=== PATIENT | female | born 1990 | race American Indian/Alaskan Native ===

== ENCOUNTER 2016-11-03 22:49 | Emergency (ER) | payer MEDICAID ==
[2016-11-04 00:23] LABS: Basophils % (Auto) 0.1 % (0.0-1.8); Eosinophils % (Auto) 3.8 % (0.0-4.3); Hematocrit 33.7 % (30.3-42.9); Hemoglobin 10.7 gm/dl (10.1-14.3); Mean Corpuscular HGB Conc 32 % (30-34); Mean Corpuscular Hemoglobin 28 pg (28-32); Mean Corpuscular Volume 88 fl (79-97); Platelet Count 311 K/mm3 (140-440); Red Blood Count 3.84 M/mm3 (3.65-5.03); Red Cell Distribution Width 14.1 % (13.2-15.2)
[2016-11-04 00:50] LABS: Alanine Aminotransferase 28 units/L (7-56); Albumin 4.3 g/dL (3.9-5); Albumin/Globulin Ratio 1.3 %; Alkaline Phosphatase 110 units/L (35-129); Anion Gap 20 mmol/L; BUN/Creatinine Ratio 17.14; Bilirubin,Total < 0.20 mg/dL (0.1-1.2); Blood Urea Nitrogen 12 mg/dL (7-17); Calcium 9.2 mg/dL (8.4-10.2); Carbon Dioxide 25 mmol/L (22-30); Chloride 103.4 mmol/L (98-107); Glucose 113 mg/dL (65-100); Lipase 54 units/L (13-60); Potassium 3.9 mmol/L (3.6-5.0); Sodium 144 mmol/L (137-145); Total Protein 7.6 g/dL (6.3-8.2)
[2016-11-04 03:29] LABS: Bilirubin,Urine NEG (Negative); Blood,Urine NEG (Negative); Ketones,Urine NEG (Negative); Leukocyte Esterase,Urine TR (Negative); Mucus,Urine FEW /HPF; Nitrite,Urine NEG (Negative); Protein,Urine <15 mg/dL mg/dL (Negative); Urobilinogen,Urine < 2.0 mg/dL (<2.0)
[2016-11-04] MEDS ORDERED: CEPHULAC PO ONE (06:18)
--- NOTE | 2016-11-04 06:23 | Emergency Department Report ---
HPI - General Chief Complaint: Abdominal Pain Time Seen by Provider: 11/04/16 06:09 - HPI HPI: Room 8 \The patient is 26-year-old female presenting with a chief complaint palpitations. The patient is status post a 10/02/2016. The patient states she has been taking pain medication was stopped approximately one week ago. The patient states she has not had a bowel movement in 6 days. Patient states she has nausea but denies vomiting. 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 (VSD repair) - Family History Family history: no significant - Social History Smoking Status: Current Every Day Smoker Substance Use Type: None - Medications Home Medications: Home Medications Medication Instructions Recorded Confirmed Last Taken Type Loratadine [Claritin] 10 mg PO DAILY #30 tablet 09/14/15 Unknown Rx Prednisone [predniSONE 10 mg 10 mg PO .TAPER #1 tab.ds.pk 09/14/15 Unknown Rx (6-Day Pack, 21 Tabs)] Promethazine /Codeine 5 ml PO Q6H PRN #150 ml 09/14/15 Unknown Rx [Phenergan/Codeine 6.25-10 mg/5 ml] Sulfamethoxazole/Trimethoprim 1 each PO BID #20 tablet 09/14/15 Unknown Rx [Bactrim DS TAB] Docusate Sodium [Colace] 100 mg PO BID PRN #30 capsule 11/04/16 Unknown Rx Lactulose [Cephulac] 20 gm PO QDAY PRN #90 ml 11/04/16 Unknown Rx ED Review of Systems ROS: Stated complaint: NAUSEA/CONSTIPATION Other details as noted in HPI Comment: All other systems reviewed and negative Constitutional: denies: chills Eyes: denies: eye pain, eye discharge, vision change ENT: denies: ear pain, throat pain Respiratory: denies: cough, shortness of breath, wheezing Cardiovascular: denies: chest pain, palpitations Endocrine: no symptoms reported Gastrointestinal: abdominal pain, nausea, constipation. denies: vomiting, diarrhea Genitourinary: denies: urgency, dysuria, discharge Musculoskeletal: denies: back pain, joint swelling, arthralgia Skin: denies: rash, lesions Neurological: denies: headache, weakness, paresthesias Psychiatric: denies: anxiety, depression Hematological/Lymphatic: denies: easy bleeding, easy bruising Physical Exam - Physical Exam Vital Signs: Vital Signs 11/03/16 11/04/16 23:09 05:14 Temperature 98.7 F 98 F Pulse Rate 67 68 Respiratory 18 16 Rate Blood Pressure 132/79 Blood Pressure 115/74 [Left] O2 Sat by Pulse 100 100 Oximetry Physical Exam: GENERAL: The patient is well-developed well-nourished female lying on stretcher not appearing to be in acute distress. [] HEENT: Normocephalic. Atraumatic. Extraocular motions are intact. Patient has moist mucous membranes. NECK: Supple. Trachea midline CHEST/LUNGS: Clear to auscultation. There is no respiratory distress noted. HEART/CARDIOVASCULAR: Regular. There is no tachycardia. There is no gallop rub or murmur. ABDOMEN: Abdomen is soft. Patient has normal bowel sounds. There is no abdominal distention. surgical site well-healed and clean SKIN: There is no rash. There is no edema. There is no diaphoresis. NEURO: The patient is awake, alert, and oriented. The patient is cooperative. The patient has normal speech MUSCULOSKELETAL: There is no evidence of acute injury. ED Course Vital Signs 11/03/16 11/04/16 23:09 05:14 Temperature 98.7 F 98 F Pulse Rate 67 68 Respiratory 18 16 Rate Blood Pressure 132/79 Blood Pressure 115/74 [Left] O2 Sat by Pulse 100 100 Oximetry - Consultations Consultation #1: 11/04/16 09:08 Informed that the patient has had a bowel movement ED Medical Decision Making - Lab Data Result diagrams: 11/04/16 00:03 11/04/16 00:03 Laboratory Tests 11/04/16 11/04/16 11/04/16 00:03 00:03 02:46 WBC 9.0 RBC 3.84 Hgb 10.7 Hct 33.7 MCV 88 MCH 28 MCHC 32 RDW 14.1 Plt Count 311 Lymph % (Auto) 35.7 H Mower % (Auto) 8.2 H Eos % (Auto) 3.8 Baso % (Auto) 0.1 Lymph # 3.2 Mower # 0.7 Eos # 0.3 Baso # 0.0 Seg Neutrophils % 52.2 Seg Neutrophils # 4.7 Sodium 144 Potassium 3.9 Chloride 103.4 Carbon Dioxide 25 Anion Gap 20 BUN 12 Creatinine 0.7 Estimated GFR > 60 BUN/Creatinine Ratio 17.14 Glucose 113 H Calcium 9.2 Total Bilirubin < 0.20 AST 27 ALT 28 Alkaline Phosphatase 110 Total Protein 7.6 Albumin 4.3 Albumin/Globulin Ratio 1.3 Lipase 54 Urine Color Yellow Urine Turbidity Clear Urine pH 6.0 Ur Specific [place] 1.021 Urine Protein <15 mg/dl Urine Glucose (UA) Neg Urine Ketones Neg Urine Blood Neg Urine Nitrite Neg Urine Bilirubin Neg Urine Urobilinogen < 2.0 Ur Leukocyte Esterase Tr Urine WBC (Auto) 3.0 Urine RBC (Auto) 1.0 U Epithel Cells (Auto) 1.0 Urine Mucus Few Urine HCG, Qual 11/04/16 02:46 WBC RBC Hgb Hct MCV MCH MCHC RDW Plt Count Lymph % (Auto) Mower % (Auto) Eos % (Auto) Baso % (Auto) Lymph # Mower # Eos # Baso # Seg Neutrophils % Seg Neutrophils # Sodium Potassium Chloride Carbon Dioxide Anion Gap BUN Creatinine Estimated GFR BUN/Creatinine Ratio Glucose Calcium Total Bilirubin AST ALT Alkaline Phosphatase Total Protein Albumin Albumin/Globulin Ratio Lipase Urine Color Urine Turbidity Urine pH Ur Specific [place] Urine Protein Urine Glucose (UA) Urine Ketones Urine Blood Urine Nitrite Urine Bilirubin Urine Urobilinogen Ur Leukocyte Esterase Urine WBC (Auto) Urine RBC (Auto) U Epithel Cells (Auto) Urine Mucus Urine HCG, Qual Negative - Radiology Data Radiology results: image reviewed (abdominal x-ray) interpreted by me: Abdominal [id number]. No free air, no air-fluid levels - Differential Diagnosis constipation Critical care attestation.: If time is entered above; I have spent that time in minutes in the direct care of this critically ill patient, excluding procedure time. ED Disposition Clinical Impression: Constipation Disposition: DISCHARGED TO HOME OR SELFCARE Is pt being admited?: No Does the pt Need Aspirin: No Condition: Stable Instructions: Abdominal Pain (ED) Additional Instructions: Return to the emergency department immediately should you develop worsening symptoms, fever, inability to tolerate food or liquid or any other concerns. Prescriptions: Docusate Sodium [Colace] 100 mg PO BID PRN #30 capsule PRN Reason: Constipation Lactulose [Cephulac] 20 gm PO QDAY PRN #90 ml PRN Reason: Constipation Referrals: JOANNA FLAHERTY MD [Primary Care Provider] - 3-5 Days Time of Disposition: 09:08
[2016-11-04 08:03] VITALS: BP 141/56
--- NOTE | 2016-11-04 09:23 | XRay Report ---
ABDOMEN, 2 views: History: Abdominal pain, constipation. There is no evidence of free air beneath the diaphragms. The gas pattern within the abdomen is unremarkable. There is no evidence of bowel dilatation, significant air-fluid levels, or pathologic calcifications. There is large stool throughout the length of the colon and rectum. The lung bases are clear. IMPRESSION: Moderate fecal retention.
== END 2016-11-04 09:45 | disposition home or self-care (01) ==
LOC: ED 22:49
DX: K59.00 Constipation, unspecified (principal); G40.909 Epilepsy, unspecified, not intractable, without status epilepticus; F17.200 Nicotine dependence, unspecified, uncomplicated
CPT/HCPCS: 36415; 74020; 80053; 81001; 81025; 83690; 85025; 99284

== ENCOUNTER 2017-03-07 17:56 | Observation (INO) | payer MEDICAID ==
[2017-03-07 19:08] LABS: Basophils % (Auto) 0.6 % (0.0-1.8); Eosinophils % (Auto) 0.5 % (0.0-4.3); Hematocrit 38.4 % (30.3-42.9); Hemoglobin 12.2 gm/dl (10.1-14.3); Mean Corpuscular HGB Conc 32 % (30-34); Mean Corpuscular Hemoglobin 28 pg (28-32); Mean Corpuscular Volume 87 fl (79-97); Platelet Count 390 K/mm3 (140-440); Red Blood Count 4.43 M/mm3 (3.65-5.03); Red Cell Distribution Width 14.7 % (13.2-15.2); White Blood Count 11.5 K/mm3 (4.5-11.0)
[2017-03-07 19:25] LABS: Alanine Aminotransferase 15 units/L (7-56); Albumin 4.4 g/dL (3.9-5); Albumin/Globulin Ratio 1.2 %; Alkaline Phosphatase 70 units/L (35-129); BUN/Creatinine Ratio 13.33; Blood Urea Nitrogen 8 mg/dL (7-17); Calcium 9.5 mg/dL (8.4-10.2); Carbon Dioxide 27 mmol/L (22-30); Glucose 83 mg/dL (65-100); Lipase 18 units/L (13-60)
[2017-03-07 19:26] LABS: Anion Gap 19 mmol/L; Chloride 100.5 mmol/L (98-107); Sodium 141 mmol/L (137-145)
[2017-03-07 21:29] LABS: Bacteria,Urine 1+ /HPF (Negative); Bilirubin,Urine NEG (Negative); Blood,Urine NEG (Negative); Ketones,Urine NEG (Negative); Leukocyte Esterase,Urine MOD (Negative); Mucus,Urine FEW /HPF; Nitrite,Urine NEG (Negative); Protein,Urine <15 mg/dL mg/dL (Negative); Urobilinogen,Urine < 2.0 mg/dL (<2.0)
--- NOTE | 2017-03-08 03:47 | Emergency Department Report ---
ED Abdominal Pain HPI - General Chief Complaint: Abdominal Pain Stated Complaint: ABDOMINAL PAIN, NAUSEA AND VOMITING Time Seen by Provider: 03/08/17 03:45 Source: patient Mode of arrival: Ambulatory Limitations: No Limitations - History of Present Illness Initial Comments: 27 year old female with a past history of epilepsy and GERD presents to the hospital complaints of possible opiate withdrawal. Patient was admitted to [facility] yesterday for opiate dependence. She presents here with complaints of abdominal cramping and pain rated 7/10, nausea, and vomiting since the morning. Patient thinks he is withdrawing. She is basically leave and states this feels a little bit better. Prior to my evaluation patient drank Oxy citris cleaneradn chlorox can cleaner in the ED. Patient states he is frustrated with the long wait and states that she was not serious enough to be seen right away she decided to make herself more emergent. She thought that drinking this solution will cause her to foam at the mouth and seize increasing her acuity and causing her to be seen more immediately in the ED. Currently patient denies any discomfort. She denies any sore throat or abdominal pain. Patient denies suicidal ideation - Related Data Previous Rx's Medication Instructions Recorded Last Taken Type Loratadine [Claritin] 10 mg PO DAILY #30 tablet 09/14/15 Unknown Rx Prednisone [predniSONE 10 mg 10 mg PO .TAPER #1 tab.ds.pk 09/14/15 Unknown Rx (6-Day Pack, 21 Tabs)] Promethazine /Codeine 5 ml PO Q6H PRN #150 ml 09/14/15 Unknown Rx [Phenergan/Codeine 6.25-10 mg/5 ml] Sulfamethoxazole/Trimethoprim 1 each PO BID #20 tablet 09/14/15 Unknown Rx [Bactrim DS TAB] Docusate Sodium [Colace] 100 mg PO BID PRN #30 capsule 11/04/16 Unknown Rx Lactulose [Cephulac] 20 gm PO QDAY PRN #90 ml 11/04/16 Unknown Rx Allergies Allergy/AdvReac Type Severity Reaction Status Date / Time amoxicillin trihydrate Allergy Hives Verified 09/14/15 01:15 [From Augmentin] potassium clavulanate Allergy Hives Verified 09/14/15 01:15 [From Augmentin] Sulfa (Sulfonamide Allergy Unknown Verified 03/07/17 18:44 Antibiotics) ED Review of Systems ROS: Stated complaint: ABDOMINAL PAIN, NAUSEA AND VOMITING Other details as noted in HPI Comment: All other systems reviewed and negative Other: Constitutional: No fevers chills Eyes: No eye pain visual changes ENT: No ear pain or throat pain Neck: Denies pain Respiratory: Denies cough wheezing shortness of breath Cardiovascular: Denies chest pain, palpitations, syncope GI: As per HPI : Denies dysuria Musculoskeletal: Denies back pain, joint swelling Skin: Denies rash, lesions, erythema Neurologic: Denies headache, numbness, weakness Psychiatric: Denies suicidal ideation, hallucinations ED Past Medical Hx - Past Medical History Previous Medical History?: Yes Hx GERD: Yes Hx Seizures: Yes (epilepsy last seizure 2004) Additional medical history: MVP, epilepsy. Anemia. Herpes - Surgical History Past Surgical History?: Yes Additional Surgical History: OPen Heart surgery @ 10 years old (VSD repair) - Social History Smoking Status: Current Every Day Smoker - Medications Home Medications: Home Medications Medication Instructions Recorded Confirmed Last Taken Type Loratadine [Claritin] 10 mg PO DAILY #30 tablet 09/14/15 Unknown Rx Prednisone [predniSONE 10 mg 10 mg PO .TAPER #1 tab.ds.pk 09/14/15 Unknown Rx (6-Day Pack, 21 Tabs)] Promethazine /Codeine 5 ml PO Q6H PRN #150 ml 09/14/15 Unknown Rx [Phenergan/Codeine 6.25-10 mg/5 ml] Sulfamethoxazole/Trimethoprim 1 each PO BID #20 tablet 09/14/15 Unknown Rx [Bactrim DS TAB] Docusate Sodium [Colace] 100 mg PO BID PRN #30 capsule 11/04/16 Unknown Rx Lactulose [Cephulac] 20 gm PO QDAY PRN #90 ml 11/04/16 Unknown Rx ED Physical Exam - General Limitations: No Limitations - Other Other exam information: General: No limitations, patient is alert in no acute distress Head exam: Atraumatic, normocephalic Eyes exam: Normal appearance ENT: Moist mucous membrane, normal oropharynx Neck exam: Normal inspection, full range of motion, no meningismus nontender Respiratory exam: Clear to auscultation bilateral, no wheezes, rales, crackles Cardiovascular: Normal rate and rhythm, normal heart sounds Abdomen: Soft, nondistended, and nontender, with normal bowel sounds, no rebound, or guarding Extremity: Full range of motion normal inspection no deformity Back: Normal Inspection, full range of motion, no tenderness Neurologic: Alert, oriented x3, cranial nerves intact, no motor or sensory deficit Psychiatric: normal affect, normal mood Skin: Warm, dry, intact ED Course Vital Signs 03/07/17 03/08/17 18:36 01:00 Temperature 98.4 F Pulse Rate 91 H 88 Respiratory 16 18 Rate Blood Pressure 127/65 Blood Pressure 121/74 [Left] O2 Sat by Pulse 96 100 Oximetry - Reevaluation(s) Reevaluation #1: 03/08/17 04:43 At 1:21 AM Nurse discussed case with Junie with poison control. Oxy-[employer] can cleaner can cause abdominal pain, nausea, vomiting, and diarrhea but not lethal. Chlorox clearance appears to 12 and depending on the amount can cause esophageal burn and stomach damage. Once it mixes with the stomach acid it turns into HCl. Recommended admission, GI consult. Nothing by mouth until cleared by GI. - Consultations Consultation #1: 03/08/17 04:12 Dr. Sethi consulted GI. ED Medical Decision Making - Lab Data Result diagrams: 03/07/17 18:50 03/07/17 18:50 Lab Results 03/07/17 03/07/17 03/07/17 Range/Units 18:50 18:50 21:09 WBC 11.5 H (4.5-11.0) K/mm3 RBC 4.43 (3.65-5.03) M/mm3 Hgb 12.2 (10.1-14.3) gm/dl Hct 38.4 (30.3-42.9) % MCV 87 (79-97) fl MCH 28 (28-32) pg MCHC 32 (30-34) % RDW 14.7 (13.2-15.2) % Plt Count 390 (140-440) K/mm3 Lymph % (Auto) 18.4 (13.4-35.0) % [place] % (Auto) 4.9 (0.0-7.3) % Eos % (Auto) 0.5 (0.0-4.3) % Baso % (Auto) 0.6 (0.0-1.8) % Lymph # 2.1 (1.2-5.4) K/mm3 [place] # 0.6 (0.0-0.8) K/mm3 Eos # 0.1 (0.0-0.4) K/mm3 Baso # 0.1 (0.0-0.1) K/mm3 Seg Neutrophils % 75.6 H (40.0-70.0) % Seg Neutrophils # 8.7 H (1.8-7.7) K/mm3 Sodium 141 (137-145) mmol/L Potassium 5.0 (3.6-5.0) mmol/L Chloride 100.5 (98-107) mmol/L Carbon Dioxide 27 (22-30) mmol/L Anion Gap 19 mmol/L BUN 8 (7-17) mg/dL Creatinine 0.6 L (0.7-1.2) mg/dL Estimated GFR > 60 ml/min BUN/Creatinine Ratio 13.33 % Glucose 83 (65-100) mg/dL Calcium 9.5 (8.4-10.2) mg/dL Total Bilirubin 0.30 (0.1-1.2) mg/dL AST 24 (5-40) units/L ALT 15 (7-56) units/L Alkaline Phosphatase 70 (35-129) units/L Total Protein 8.0 (6.3-8.2) g/dL Albumin 4.4 (3.9-5) g/dL Albumin/Globulin Ratio 1.2 % Lipase 18 (13-60) units/L Urine Color Yellow (Yellow) Urine Turbidity Clear (Clear) Urine pH 5.0 (5.0-7.0) Ur Specific [place] 1.017 (1.003-1.030) Urine Protein <15 mg/dl (Negative) mg/dL Urine Glucose (UA) Neg (Negative) mg/dL Urine Ketones Neg (Negative) mg/dL Urine Blood Neg (Negative) Urine Nitrite Neg (Negative) Urine Bilirubin Neg (Negative) Urine Urobilinogen < 2.0 (<2.0) mg/dL Ur Leukocyte Esterase Mod (Negative) Urine WBC (Auto) 7.0 H (0.0-6.0) /HPF Urine RBC (Auto) 5.0 (0.0-6.0) /HPF U Epithel Cells (Auto) 12.0 (0-13.0) /HPF Urine Bacteria (Auto) 1+ (Negative) /HPF Urine Mucus Few /HPF - Medical Decision Making 1013 signed. Patient requires admission to the hospital to be clear by GI due to caustic ingestion - Differential Diagnosis opiate withdrawal, gastroenteritis, dehydration, esophageal in Critical Care Time: No Critical care attestation.: If time is entered above; I have spent that time in minutes in the direct care of this critically ill patient, excluding procedure time. ED Disposition Clinical Impression: Ingestion of corrosive chemical, Opiate dependence Disposition: OP ADMIT IP TO THIS HOSP Is pt being admited?: Yes Condition: Stable Time of Disposition: 03:51 (Hospitalist)
[2017-03-08] MEDS ORDERED: GEODON IM ONE (03:51)
[2017-03-08] MEDS ORDERED: WATER FOR INJ (PF) 10 ML ONE (04:26)
[2017-03-08] MEDS ORDERED: MILK OF MAGNESIA PO PRN (06:06)
[2017-03-08] MEDS ORDERED: PROVENTIL IH PRN (06:06)
[2017-03-08] MEDS ORDERED: MORPHINE IV PRN (06:06)
[2017-03-08] MEDS ORDERED: ALUM-MAG HYDROX-SIMETH 200-200-20MG/5ML PO PRN (06:06)
[2017-03-08] MEDS ORDERED: DULCOLAX PR PRN (06:06)
[2017-03-08] MEDS ORDERED: ZOFRAN IV PRN (06:06)
--- NOTE | 2017-03-08 06:11 | History and Physical Report ---
History of Present Illness Date of examination: 03/08/17 Chief complaint: Abdominal pain nausea vomiting History of present illness: 27 year old female with a past history of epilepsy and GERD presents to the hospital complaints of possible opiate withdrawal. Patient was admitted to [facility] yesterday for opiate dependence. She presents here with complaints of abdominal cramping and pain rated 7/10, nausea, and vomiting since the morning. Patient thinks he is withdrawing. She is basically leave and states this feels a little bit better. Prior to my evaluation patient drank Oxy citris cleaneradn chlorox stable cleaner in the ED. Patient states he is frustrated with the long wait and states that she was not serious enough to be seen right away she decided to make herself more emergent. She thought that drinking this solution will cause her to foam at the mouth and seize increasing her acuity and causing her to be seen more immediately in the ED. Currently patient denies any discomfort. She denies any sore throat or abdominal pain. Patient denies suicidal ideation Past History Past Medical History: seizures, other (herpes) Past Surgical History: Other (V is deviated.) Social history: smoking Family history: no significant family history Medications and Allergies Allergies Allergy/AdvReac Type Severity Reaction Status Date / Time amoxicillin trihydrate Allergy Hives Verified 09/14/15 01:15 [From Augmentin] potassium clavulanate Allergy Hives Verified 09/14/15 01:15 [From Augmentin] Sulfa (Sulfonamide Allergy Unknown Verified 03/07/17 18:44 Antibiotics) Home Medications Medication Instructions Recorded Confirmed Last Taken Type Loratadine [Claritin] 10 mg PO DAILY #30 tablet 09/14/15 Unknown Rx Prednisone [predniSONE 10 mg 10 mg PO .TAPER #1 tab.ds.pk 09/14/15 Unknown Rx (6-Day Pack, 21 Tabs)] Promethazine /Codeine 5 ml PO Q6H PRN #150 ml 09/14/15 Unknown Rx [Phenergan/Codeine 6.25-10 mg/5 ml] Sulfamethoxazole/Trimethoprim 1 each PO BID #20 tablet 09/14/15 Unknown Rx [Bactrim DS TAB] Docusate Sodium [Colace] 100 mg PO BID PRN #30 capsule 11/04/16 Unknown Rx Lactulose [Cephulac] 20 gm PO QDAY PRN #90 ml 11/04/16 Unknown Rx Active Meds: Active Medications Acetaminophen (Tylenol) 650 mg PO Q4H PRN PRN Reason: Pain MILD(1-3)/Fever >100.5/[place] Review of Systems All systems: negative (all 14 systems reviewed and found to be negative except as mentioned in HPI) Exam - Physical Exam Narrative exam: General: No limitations, patient is alert in no acute distress Head exam: Atraumatic, normocephalic Eyes exam: Normal appearance ENT: Moist mucous membrane, normal oropharynx Neck exam: Normal inspection, full range of motion, no meningismus nontender Respiratory exam: Clear to auscultation bilateral, no wheezes, rales, crackles Cardiovascular: Normal rate and rhythm, normal heart sounds Abdomen: Soft, nondistended, and nontender, with normal bowel sounds, no rebound, or guarding Extremity: Full range of motion normal inspection no deformity Back: Normal Inspection, full range of motion, no tenderness Neurologic: Alert, oriented x3, cranial nerves intact, no motor or sensory deficit Psychiatric: Anxious mood patient is very upset and agitated yelling and screaming for food, Skin: Warm, dry, intact - Constitutional Vitals: Temp Pulse Resp BP Pulse Ox 98.8 F 91 H 18 107/70 100 03/08/17 05:55 03/08/17 05:55 03/08/17 05:55 03/08/17 05:55 03/08/17 05:55 Results - Labs CBC & Chem 7: 03/07/17 18:50 03/07/17 18:50 Labs: Laboratory Last Values WBC 11.5 K/mm3 (4.5-11.0) H 03/07/17 18:50 RBC 4.43 M/mm3 (3.65-5.03) 03/07/17 18:50 Hgb 12.2 gm/dl (10.1-14.3) 03/07/17 18:50 Hct 38.4 % (30.3-42.9) 03/07/17 18:50 MCV 87 fl (79-97) 03/07/17 18:50 MCH 28 pg (28-32) 03/07/17 18:50 MCHC 32 % (30-34) 03/07/17 18:50 RDW 14.7 % (13.2-15.2) 03/07/17 18:50 Plt Count 390 K/mm3 (140-440) 03/07/17 18:50 Lymph % (Auto) 18.4 % (13.4-35.0) 03/07/17 18:50 [place] % (Auto) 4.9 % (0.0-7.3) 03/07/17 18:50 Eos % (Auto) 0.5 % (0.0-4.3) 03/07/17 18:50 Baso % (Auto) 0.6 % (0.0-1.8) 03/07/17 18:50 Lymph # 2.1 K/mm3 (1.2-5.4) 03/07/17 18:50 [place] # 0.6 K/mm3 (0.0-0.8) 03/07/17 18:50 Eos # 0.1 K/mm3 (0.0-0.4) 03/07/17 18:50 Baso # 0.1 K/mm3 (0.0-0.1) 03/07/17 18:50 Seg Neutrophils % 75.6 % (40.0-70.0) H 03/07/17 18:50 Seg Neutrophils # 8.7 K/mm3 (1.8-7.7) H 03/07/17 18:50 Sodium 141 mmol/L (137-145) 03/07/17 18:50 Potassium 5.0 mmol/L (3.6-5.0) 03/07/17 18:50 Chloride 100.5 mmol/L (98-107) 03/07/17 18:50 Carbon Dioxide 27 mmol/L (22-30) 03/07/17 18:50 Anion Gap 19 mmol/L 03/07/17 18:50 BUN 8 mg/dL (7-17) 03/07/17 18:50 Creatinine 0.6 mg/dL (0.7-1.2) L 03/07/17 18:50 Estimated GFR > 60 ml/min 03/07/17 18:50 BUN/Creatinine Ratio 13.33 % 03/07/17 18:50 Glucose 83 mg/dL (65-100) 03/07/17 18:50 Calcium 9.5 mg/dL (8.4-10.2) 03/07/17 18:50 Total Bilirubin 0.30 mg/dL (0.1-1.2) 03/07/17 18:50 AST 24 units/L (5-40) 03/07/17 18:50 ALT 15 units/L (7-56) 03/07/17 18:50 Alkaline Phosphatase 70 units/L (35-129) 03/07/17 18:50 Total Protein 8.0 g/dL (6.3-8.2) 03/07/17 18:50 Albumin 4.4 g/dL (3.9-5) 03/07/17 18:50 Albumin/Globulin Ratio 1.2 % 03/07/17 18:50 Lipase 18 units/L (13-60) 03/07/17 18:50 Urine Color Yellow (Yellow) 03/07/17 21:09 Urine Turbidity Clear (Clear) 03/07/17 21:09 Urine pH 5.0 (5.0-7.0) 03/07/17 21:09 Ur Specific [place] 1.017 (1.003-1.030) 03/07/17 21:09 Urine Protein <15 mg/dl mg/dL (Negative) 03/07/17 21:09 Urine Glucose (UA) Neg mg/dL (Negative) 03/07/17 21:09 Urine Ketones Neg mg/dL (Negative) 03/07/17 21:09 Urine Blood Neg (Negative) 03/07/17 21:09 Urine Nitrite Neg (Negative) 03/07/17 21:09 Urine Bilirubin Neg (Negative) 03/07/17 21:09 Urine Urobilinogen < 2.0 mg/dL (<2.0) 03/07/17 21:09 Ur Leukocyte Esterase Mod (Negative) 03/07/17 21:09 Urine WBC (Auto) 7.0 /HPF (0.0-6.0) H 03/07/17 21:09 Urine RBC (Auto) 5.0 /HPF (0.0-6.0) 03/07/17 21:09 U Epithel Cells (Auto) 12.0 /HPF (0-13.0) 03/07/17 21:09 Urine Bacteria (Auto) 1+ /HPF (Negative) 03/07/17 21:09 Urine Mucus Few /HPF 03/07/17 21:09 Assessment and Plan Assessment and plan: Assessment and plan - * Acute psychosis and suicidal ideation and suicidal behavior * Ingestion of a corrosive substance which is base and potential to be converted into an acid substance * Abdominal pain nausea vomiting nonspecific Plan Admit the patient to medical floor with telemetry she is a 1013, keep nothing by mouth Poison control was called and the patient needs to be monitored GI was consulted in the ER patient recently seen and evaluated in the morning possibly need for EGD When necessary morphine and Ativan Monitor CBC and electrolytes replace electrolytes when necessary DVT GI prophylaxis as ordered Nontender follow the patient closely VTE prophylaxis?: Chemical, Mechanical Plan of care discussed with patient/family: Yes
[2017-03-08] MEDS ORDERED: D5NS 1,000 ML IV SCH (07:00)
--- NOTE | 2017-03-08 07:26 | Admit Criteria Form ---
Admission Criteria Documentation: DRUG INGESTION OR OVERDOSE Clinical Indications for Admission to Inpatient Care ( [place]ona/check or initial the applicable condition/criteria) Admission is indicated for severe toxicity as indicated by 1 or more of the following(1)(2)(3) )(4)(5)(6) I. Hemodynamic instability. II. Dangerous arrhythmia III. Respiratory abnormalities IV. Hypertension requiring inpatient treatment V. Specific finding indicating severe and likely prolonged or drug toxicity [X]. Inpatient admission required rather than observation care (See Drug Ingestion or Overdose: Observation Care guideline as appropriate) because 1 or more of the following(9)(10) [ ] a) Altered mental status that is severe or persistent [ ] b) Clinical finding(e.g., metabolic acidosis, hypoglycemia, bradycardia ) that is severe or persistent(11) [ ] c) Toxic drug level that is persistent or necessitates ongoing treatment (e.g. acetaminophen overdose) [ ] d) Recurrent seizures [X] e) Psychiatric risk status not acceptable for outpatient management [ ] f) Continuous intravenous infusion of anticoagulation, platelet inhibitor,vasoactive,or antiarrhythmic medication(12)(13) [X ] g) Other condition, treatment or monitoring requiring inpatient admission Extended stay beyond goal length of stay may be needed for (4) (24) a) Neurologic or respiratory compromise(15)(25) b) Hemodynamic instability c) Persistent toxic drug levels (26) d) Severe drug toxicities or complications(5)(27)(28) e) Ongoing antidote treatment(e.g., acetaminophen overdose) (11)(23)(29)(29)(30) (31) f) Older patient The original [employer] content created by [employer] has been revised. The portions of the content which have been revised are identified through the use of italic text or in bold, and [employer] has neither reviewed nor approved the modified material. All other unmodified content is copyright [employer]. Please see references footnoted in the original [employer] edition 2017 Admission Criteria Met: Yes
[2017-03-08] MEDS ORDERED: NACL 0.9% 1000 ML 1,000 ML IV ONE (08:39)
--- NOTE | 2017-03-08 10:21 | Gastroenterology Consultation ---
<HARITHA DAMON - Last Filed: 03/08/17 10:31> History of Present Illness - Reason for Consult Consult date: 03/08/17 toxic substance ingestion Requesting physician: CARMELA WANG - History of Present Illness Patient is a 27 y/o female who presented to the hospital with c/o opiate withdrawal symptoms of abd cramping and N/V after being admitted to [facility] yesterday. She was frustrated with the wait time in the ER so she drank Oxy-[employer] basting cleaner and Chlorox to make herself more emergent so she would be evaluated right away. A 1013 was signed and she was admitted. This morning pt was resting in bed with her eyes closed, easily arroused but drowsy. No acute distress. Admits to occasional generalized abd cramping that is worsened by anxiety. She correlates abd cramps with opiate withdrawal. Reports eating a soldid breakfast this am in the ER with toast, eggs, grits, and milk without difficulty. Denies abd pain, N/V, hematemesis, dysphagia, odynophagia, or LGI symptoms. PMH significant for epilepsy, GERD, and opiate dependence. Past History Past Medical History: GERD, seizures, other (herpes) Past Surgical History: bowel surgery, Other (V is deviated.) Social history: smoking, prescription drug abuse Family history: no significant family history Medications and Allergies Allergies Allergy/AdvReac Type Severity Reaction Status Date / Time amoxicillin trihydrate Allergy Hives Verified 09/14/15 01:15 [From Augmentin] potassium clavulanate Allergy Hives Verified 09/14/15 01:15 [From Augmentin] Sulfa (Sulfonamide Allergy Unknown Verified 03/07/17 18:44 Antibiotics) Home Medications Medication Instructions Recorded Confirmed Last Taken Type Loratadine [Claritin] 10 mg PO DAILY #30 tablet 09/14/15 Unknown Rx Prednisone [predniSONE 10 mg 10 mg PO .TAPER #1 tab.ds.pk 09/14/15 Unknown Rx (6-Day Pack, 21 Tabs)] RX: Promethazine /Codeine 5 ml PO Q6H PRN #150 ml 09/14/15 Unknown Rx [Phenergan/Codeine 6.25-10 mg/5 ml] Sulfamethoxazole/Trimethoprim 1 each PO BID #20 tablet 09/14/15 Unknown Rx [Bactrim DS TAB] Docusate Sodium [Colace] 100 mg PO BID PRN #30 capsule 11/04/16 Unknown Rx RX: Lactulose [Cephulac] 20 gm PO QDAY PRN #90 ml 11/04/16 Unknown Rx Active Meds: Active Medications Acetaminophen (Tylenol) 650 mg PO Q4H PRN PRN Reason: Pain MILD(1-3)/Fever >100.5/[place] Hydrox/Mg Hydrox/Simethicone (Alum-Mag Hydrox-Simeth [id number]/5ml) 30 ml PO Q4H PRN PRN Reason: Indigestion Albuterol (Proventil) 2.5 mg IH Q4HRT PRN PRN Reason: Shortness Of Breath Bisacodyl (Dulcolax) 10 mg [place] QDAY PRN PRN Reason: Constipation unrelieved by MOM Enoxaparin Sodium (Lovenox) 40 mg SUB-Q QDAY GOLD Famotidine (Pepcid) 20 mg IV BID GOLD Dextrose/Sodium Chloride (D5ns) 1,000 mls @ 150 mls/hr IV DIRECT GOLD Magnesium Hydroxide (Milk Of Magnesia) 30 ml PO Q4H PRN PRN Reason: Constipation Morphine Sulfate (Morphine) 2 mg IV Q4H PRN PRN Reason: Pain, Moderate (4-6) Ondansetron HCl (Zofran) 4 mg IV Q8H PRN PRN Reason: N/V unrelieved by Reglan Zolpidem Tartrate (Ambien) 5 mg PO QHS PRN PRN Reason: Insomnia Review of Systems - Review of Systems All systems: negative Gastrointestinal: other (occasional generalized abd cramping that is worsened by anxiety) Exam - Constitutional Vital Signs: Temp Pulse Resp BP Pulse Ox 98.3 F 70 18 117/80 100 03/08/17 08:15 03/08/17 08:15 03/08/17 08:15 03/08/17 08:15 03/08/17 08:15 General appearance: no acute distress, well-nourished, other (somnolent) - EENT Eyes: PERRL, EOM intact ENT: hearing intact - Neck Neck: supple, normal ROM - Respiratory Respiratory: bilateral: CTA - Cardiovascular Rhythm: regular Heart Sounds: Present: S1 & S2 Extremities: No edema - Gastrointestinal General gastrointestinal: Present: soft, non-tender, non-distended, normal bowel sounds - Integumentary Integumentary: Present: warm, dry - Neurologic Neurological: alert and oriented x3 - Labs CBC & Chem 7: 03/07/17 18:50 03/07/17 18:50 Assessment and Plan 1.toxic substance ingestion -pt reports drinking a couple of sips of Oxy[employer] basting cleaner and Chlorox in ER while waiting to make herself more emergent and to get evaluated faster currently a 1013 -pt is asymptomatic w/o c/o abd pain, N/V, diarrhea, dysphagia, or odynophagia -tolerated eating a solid breakfast this am without difficulty -will start on carafate -no recommendations at this time for an endoscopic evaluation -continue to monitor with regular diet, if pt continues to be asymptomatic, she is okay to be to be d/c from GI standpoint -will sign off, please re-consult if pt's condition changes <FEDERICO GALEANO - Last Filed: 03/08/17 19:17> Medications and Allergies Active Meds: Active Medications Acetaminophen (Tylenol) 650 mg PO Q4H PRN PRN Reason: Pain MILD(1-3)/Fever >100.5/[place] Hydrox/Mg Hydrox/Simethicone (Alum-Mag Hydrox-Simeth [phone]/5ml) 30 ml PO Q4H PRN PRN Reason: Indigestion Albuterol (Proventil) 2.5 mg IH Q4HRT PRN PRN Reason: Shortness Of Breath Bisacodyl (Dulcolax) 10 mg [place] QDAY PRN PRN Reason: Constipation unrelieved by MOM Buprenorphine HCl (Suboxone 2 Mg-0.5 Mg) 1 each SL Q8H PRN PRN Reason: Agitation Last Admin: 03/08/17 14:54 Dose: 1 each Enoxaparin Sodium (Lovenox) 40 mg SUB-Q QDAY GOLD Last Admin: 03/08/17 11:37 Dose: 40 mg Famotidine (Pepcid) 20 mg IV BID GOLD Last Admin: 03/08/17 11:38 Dose: 20 mg Dextrose/Sodium Chloride (D5ns) 1,000 mls @ 150 mls/hr IV DIRECT GOLD Last Admin: 03/08/17 12:17 Dose: 150 mls/hr Levofloxacin (Levaquin) 500 mg PO Q24H [facility] Last Admin: 03/08/17 14:39 Dose: 500 mg Magnesium Hydroxide (Milk Of Magnesia) 30 ml PO Q4H PRN PRN Reason: Constipation Ondansetron HCl (Zofran) 4 mg IV Q8H PRN PRN Reason: N/V unrelieved by Reglan Sucralfate (Carafate) 1 gm PO ACHS [facility] Last Admin: 03/08/17 17:47 Dose: 1 gm Zolpidem Tartrate (Ambien) 5 mg PO QHS PRN PRN Reason: Insomnia Exam - Constitutional Vital Signs: Temp Pulse Resp BP Pulse Ox 98.3 F 70 18 117/80 98 03/08/17 08:15 03/08/17 08:15 03/08/17 08:15 03/08/17 08:15 03/08/17 10:00 - Labs CBC & Chem 7: 03/07/17 18:50 03/07/17 18:50 Assessment and Plan The patient was seen and examined and appears to have had a suicide gesture. She is tolerating a solid diet and endoscopy is presently not indicate. Please re consult if patient develops any significant GI symptoms. Thank you for this consultation. Federico Galeano MD
[2017-03-08] MEDS: LOVENOX SUB-Q SCH (11:37)
[2017-03-08] MEDS: CARAFATE PO SCH ×3 (11:38→22:40)
[2017-03-08] MEDS: PEPCID IV SCH ×2 (11:38→22:40)
[2017-03-08] MEDS ORDERED: NACL ONE (12:34)
[2017-03-08] MEDS ORDERED: ATIVAN PO PRN (13:03)
[2017-03-08] MEDS: LEVAQUIN PO SCH (14:39)
--- NOTE | 2017-03-08 14:43 | Event Note ---
Date: 03/08/17 Patient was seen and examined in no acute distress. She was emotional complaining that she came to [place] for voluntary detox. She is upset that nobody has given her detox medications here. On verification with and could only have her on Suboxone when necessary and also Ativan when necessary. This was started here. She does not have any withdrawal symptoms noted. She is also pending psych evaluation. She reports that she only took a finger dab size of the substance and only for attention and not due to suicidal ideation.
[2017-03-08] MEDS: SUBOXONE 2 MG-0.5 MG SL PRN (14:54)
--- NOTE | 2017-03-08 17:49 | Consultation ---
History of Present Illness - Reason for Consult Consult date: 03/08/17 Reason for consult: Mental Health Evaluation Requesting physician: CARMELA WANG - Chief Complaint Chief complaint: "I wanted help quick" - History of Present Psychiatric Illness 27 year old female with a past history of epilepsy and GERD presents to the hospital complaints of possible opiate withdrawal. Patient was admitted to [facility] yesterday for opiate dependence. Today patient is calm and cooperative during the assessment. She stated that she wanted to be seen "quickly" because she was "stressing out" in the ER. She decided to drink cleaning fluid from a bucket in the lobby to get the attention of staff. She stated after she drink the fluid, she felt like she made a mistake. She denies being suicidal, but stated having thoughts in the past. Patient rate her abdomen pain 5/10, with 10 being the worse. She denies SI/HI's, AVH's, and depression. She stated that she has a mental health dx's of depression and anxiety. She admit to recreational drug use, but denies excessive alcohol consumption (etoh). She stated taking an opiate 3 days ago along with injecting "some type amphetamine" 2 days ago in her left arm. Medications and Allergies Allergies Allergy/AdvReac Type Severity Reaction Status Date / Time amoxicillin trihydrate Allergy Hives Verified 09/14/15 01:15 [From Augmentin] potassium clavulanate Allergy Hives Verified 09/14/15 01:15 [From Augmentin] Sulfa (Sulfonamide Allergy Unknown Verified 03/07/17 18:44 Antibiotics) Home Medications Medication Instructions Recorded Confirmed Last Taken Type Loratadine [Claritin] 10 mg PO DAILY #30 tablet 09/14/15 Unknown Rx Prednisone [predniSONE 10 mg 10 mg PO .TAPER #1 tab.ds.pk 09/14/15 Unknown Rx (6-Day Pack, 21 Tabs)] Promethazine /Codeine 5 ml PO Q6H PRN #150 ml 09/14/15 Unknown Rx [Phenergan/Codeine 6.25-10 mg/5 ml] Sulfamethoxazole/Trimethoprim 1 each PO BID #20 tablet 09/14/15 Unknown Rx [Bactrim DS TAB] Docusate Sodium [Colace] 100 mg PO BID PRN #30 capsule 11/04/16 Unknown Rx Lactulose [Cephulac] 20 gm PO QDAY PRN #90 ml 11/04/16 Unknown Rx Active Meds: Active Medications Acetaminophen (Tylenol) 650 mg PO Q4H PRN PRN Reason: Pain MILD(1-3)/Fever >100.5/[place] Hydrox/Mg Hydrox/Simethicone (Alum-Mag Hydrox-Simeth [phone]/5ml) 30 ml PO Q4H PRN PRN Reason: Indigestion Albuterol (Proventil) 2.5 mg IH Q4HRT PRN PRN Reason: Shortness Of Breath Bisacodyl (Dulcolax) 10 mg IN QDAY PRN PRN Reason: Constipation unrelieved by MOM Buprenorphine HCl (Suboxone 2 Mg-0.5 Mg) 1 each SL Q8H PRN PRN Reason: Agitation Last Admin: 03/08/17 14:54 Dose: 1 each Enoxaparin Sodium (Lovenox) 40 mg SUB-Q QDAY [facility] Last Admin: 03/08/17 11:37 Dose: 40 mg Famotidine (Pepcid) 20 mg IV BID [facility] Last Admin: 03/08/17 11:38 Dose: 20 mg Dextrose/Sodium Chloride (D5ns) 1,000 mls @ 150 mls/hr IV DIRECT [facility] Last Admin: 03/08/17 12:17 Dose: 150 mls/hr Levofloxacin (Levaquin) 500 mg PO Q24H [facility] Last Admin: 03/08/17 14:39 Dose: 500 mg Lorazepam (Ativan) 1 mg PO Q4H PRN PRN Reason: Agitation Magnesium Hydroxide (Milk Of Magnesia) 30 ml PO Q4H PRN PRN Reason: Constipation Morphine Sulfate (Morphine) 2 mg IV Q4H PRN PRN Reason: Pain, Moderate (4-6) Ondansetron HCl (Zofran) 4 mg IV Q8H PRN PRN Reason: N/V unrelieved by Reglan Sucralfate (Carafate) 1 gm PO ACHS [facility] Last Admin: 03/08/17 17:47 Dose: 1 gm Zolpidem Tartrate (Ambien) 5 mg PO QHS PRN PRN Reason: Insomnia Past psychiatric history - Past Medical History Past Medical History: GERD, seizures Past Surgical History: No surgical history - past Psychiatric treatment and history Psych: Depression psychiatric treatment history: [facility] for opioid detox. Denies a fam psy hx. - Social History Social history: lives with family (HS and College Grad) Mental Status Exam - Vital signs Last Vital Signs Temp 98.3 F 03/08/17 08:15 Pulse 70 03/08/17 08:15 Resp 18 03/08/17 08:15 BP 117/80 03/08/17 08:15 Pulse Ox 98 03/08/17 10:00 - Exam Narrative exam: MSE: Appearance: calm, cooperative Behavior: regular eye contact Speech: regular rate and tone Mood: "tired" Affect: labile Thought Process: linear Thought Content: Denies SI/HI's and AVH's Motor Activity: ambulatory Cognition: A/Ox 3 Insight: fair Judgment: fair Results Result Diagrams: 03/07/17 18:50 03/07/17 18:50 All other labs normal. Assessment and Plan Assessment and plan: Impression: Historical Dx: Depression/Anxiety. Unspecified Mood DO. Today patient is calm and cooperative during the assessment. Patient reports nausea. DDx: Acute Stress Reaction Recommendation/Plan: Continue 1013. D/C'd Morphine and Ativan. Continue Suboxone 2/0.5 mg SL Q8hrs for opioid withdrawals. Will continue to evaluate patient daily.
[2017-03-08] MEDS: TYLENOL PO PRN (20:46)
[2017-03-08] MEDS: AMBIEN PO PRN (22:40)
[2017-03-09] MEDS: SUBOXONE 2 MG-0.5 MG SL PRN ×2 (02:43→11:24)
[2017-03-09 06:42] LABS: Basophils % (Auto) 1.1 % (0.0-1.8); Eosinophils % (Auto) 2.9 % (0.0-4.3); Hematocrit 36.1 % (30.3-42.9); Hemoglobin 11.6 gm/dl (10.1-14.3); Mean Corpuscular HGB Conc 32 % (30-34); Mean Corpuscular Hemoglobin 28 pg (28-32); Mean Corpuscular Volume 87 fl (79-97); Platelet Count 336 K/mm3 (140-440); Red Blood Count 4.15 M/mm3 (3.65-5.03); Red Cell Distribution Width 14.3 % (13.2-15.2); White Blood Count 6.2 K/mm3 (4.5-11.0)
[2017-03-09 06:59] LABS: Alanine Aminotransferase 15 units/L (7-56); Albumin 4.1 g/dL (3.9-5); Albumin/Globulin Ratio 1.1 %; Alkaline Phosphatase 72 units/L (35-129); Anion Gap 20 mmol/L; BUN/Creatinine Ratio 11.66; Blood Urea Nitrogen 7 mg/dL (7-17); Calcium 9.2 mg/dL (8.4-10.2); Carbon Dioxide 26 mmol/L (22-30); Chloride 99.4 mmol/L (98-107); Glucose 110 mg/dL (65-100); Potassium 4.1 mmol/L (3.6-5.0); Sodium 141 mmol/L (137-145); Total Protein 7.9 g/dL (6.3-8.2)
--- NOTE | 2017-03-09 07:44 | Discharge Summary ---
Providers - Providers Date of Admission: 03/08/17 06:06 Attending physician: KAYLYNN LEE MD 03/08/17 10:18 Consult to Mental Health [CONS] Routine Reason For Exam: suicidal ideation Place consult to:: mental health Notified:: Phone number called:: [phone] Was contact made?: No Time called:: 11:26 Primary care physician: [employer] Hospitalization Reason for admission: suicidal ideation Condition: Stable Hospital course: 27 year old female with a past history of epilepsy and GERD presents to the hospital complaints of possible opiate withdrawal. Patient was admitted to [facility] yesterday for opiate dependence. She presents here with complaints of abdominal cramping and pain rated 7/10, nausea, and vomiting since the morning. Patient thinks he is withdrawing. She is basically leave and states this feels a little bit better. Prior to evaluation patient drank Oxy [employer] cleaneradn chlorox book cleaner in the ED. Patient states he is frustrated with the long wait and states that she was not serious enough to be seen right away she decided to make herself more emergent. She thought that drinking this solution will cause her to foam at the mouth and seize increasing her acuity and causing her to be seen more immediately in the ED. Currently patient denies any discomfort. She denies any sore throat or abdominal pain. Patient denies suicidal ideation. Patient was admitted and monitored overnight. No significant abnormalities was noted. GI was consulted with no intervention recommended except for Carafate with diet. The patient was seen by psychiatry admits to depression and anxiety and also injected of some type of amphetamine 2 days in the left prior to admission. Patient was diagnosed acute psychosis with suicidal behavior and ideation and was continued on 1013. Clinically she is medically stable for transfer to inpatient psych. Suboxone was continued in the hospital. she was also treated for abdominal pain with Tylenol 3, which is discontinued. Patient completed ciprofloxacin for UTI in house. * Acute psychosis and suicidal ideation and suicidal behavior * Ingestion of a corrosive substance which is base and potential to be converted into an acid substance * Peritoneal irritation with nausea vomiting nonspecific * Acute cystitis * Depression * Acute stress reaction * Opioid dependence Disposition: [id number] PSY HOSP/PSY UNIT Time spent for discharge: 35 mins Core Measure Documentation - Palliative Care Palliative Care/ Comfort Measures: Not Applicable - Core Measures Any of the following diagnoses?: none - VTE Discharge Requirements Deep Vein Thrombosis/Pulmonary Embolism Present on Admission: No Exam - Physical Exam Narrative exam: VITAL SIGNS: Reviewed. GENERAL: The patient appeared well nourished and normally developed. Vital signs as documented. HEAD: No signs of head trauma. EYES: Pupils are equal. Extraocular motions intact. EARS: Hearing grossly intact. MOUTH: Oropharynx is normal. NECK: No adenopathy, no JVD. CHEST: Chest with clear breath sounds bilaterally. No wheezes, rales, or rhonchi. CARDIAC: Regular rate and rhythm. S1 and S2, without murmurs, gallops, or rubs. VASCULAR: No Edema. Peripheral pulses normal and equal in all extremities. ABDOMEN: Soft, without detectable tenderness. No sign of distention. No rebound or guarding, and no masses palpated. Bowel Sounds normal. MUSCULOSKELETAL: Good range of motion of all major joints. Extremities without clubbing, cyanosis or edema. NEUROLOGIC EXAM: Alert and oriented x 3. No focal sensory or strength deficits. Speech normal. Follows commands. PSYCHIATRIC: Mood normal. SKIN: No rash or lesions. - Constitutional Vitals: Temp Pulse Resp BP Pulse Ox 98.3 F 85 17 133/87 99 03/09/17 00:02 03/09/17 00:02 03/08/17 21:46 03/09/17 00:02 03/09/17 00:02 Plan Activity: advance as tolerated, fall precautions Diet: regular Special Instructions: smoking cessation Follow up with: PRIMARY MD ABBY [Primary Care Provider] - 7 Days DONN CHANDLER MD [Staff Physician] - 7 Days Prescriptions: Sucralfate [Carafate] 1 gm PO ACHS #10 tablet
[2017-03-09] MEDS: CARAFATE PO SCH ×3 (08:26→21:31)
[2017-03-09] MEDS: PEPCID PO SCH ×2 (11:23→21:31)
[2017-03-09] MEDS: LOVENOX SUB-Q SCH (11:24)
--- NOTE | 2017-03-09 14:40 | Progress Note ---
Subjective - Reason for Consult Consult date: 03/09/17 Reason for consult: follow up - Chief Complaint Chief complaint: "I'm depressed." 27 year old female with a past history of epilepsy and GERD presents to the hospital complaints of possible opiate withdrawal. Patient was admitted to [facility] for opiate dependence and then sent to the ER. She stated that she wanted to be seen "quickly" because she was "stressing out" in the ER. She decided to drink cleaning fluid from a bucket in the lobby to get the attention of staff. She stated after she drink the fluid, she felt like she made a mistake.She denies SI/HI's, AVH's, and depression. She stated that she has a mental health dx's of depression and anxiety. She admits to recreational drug use, but denies excessive alcohol consumption (etoh). She stated taking an opiate and a stimulant IV 3 days prior to admission. She is craving cocaine 8/ 10 with 10 being the worst . - Exam Narrative exam: MSE: Appearance: calm, cooperative Behavior: regular eye contact Speech: regular rate and tone Mood: depressed Affect: labile Thought Process: linear Thought Content: Denies SI/HI's and AVH's Motor Activity: ambulatory Cognition: A/Ox 3 Insight: fair Judgment: fair Assessment and plan: Impression: Historical Dx: Depression/Anxiety. Unspecified Mood DO. Today patient is calm and cooperative during the assessment. Patient reports cravings for cocaine. DDx: Acute Stress Reaction Recommendation/Plan: Continue 1013. D/C'd Morphine and Ativan. Continue Suboxone 2/0.5 mg SL Q8hrs for opioid withdrawals. Return to [facility] for further stabilization. Mental Status Exam - Vital signs Last Vital Signs Temp 97.7 F 03/09/17 08:34 Pulse 96 H 03/09/17 08:34 Resp 18 03/09/17 08:34 BP 139/84 03/09/17 08:34 Pulse Ox 98 03/09/17 13:58
[2017-03-09] MEDS: TYLENOL PO PRN (17:53)
[2017-03-09] MEDS: LEVAQUIN PO SCH (18:00)
[2017-03-09] MEDS: AMBIEN PO PRN (21:31)
[2017-03-10] MEDS: SUBOXONE 2 MG-0.5 MG SL PRN (01:42)
[2017-03-10] MEDS: CARAFATE PO SCH ×4 (08:20→21:53)
[2017-03-10] MEDS ORDERED: TYLENOL #3 PO PRN (09:01)
[2017-03-10] MEDS: LOVENOX SUB-Q SCH (10:31)
[2017-03-10] MEDS: TYLENOL PO PRN ×2 (10:31→19:43)
[2017-03-10] MEDS: PEPCID PO SCH ×2 (10:32→21:53)
[2017-03-10] MEDS: LEVAQUIN PO SCH (12:47)
--- NOTE | 2017-03-10 13:28 | Progress Note ---
Assessment and Plan Assessment and plan: 27 year old female with a past history of epilepsy and GERD presents to the hospital complaints of possible opiate withdrawal. Patient was admitted to [facility] yesterday for opiate dependence. She presents here with complaints of abdominal cramping and pain rated 7/10, nausea, and vomiting since the morning. Patient thinks he is withdrawing. She is basically leave and states this feels a little bit better. Prior to evaluation patient drank Oxy citris cleaneradn chlorox vacuum cleaner operator in the ED. Patient states he is frustrated with the long wait and states that she was not serious enough to be seen right away she decided to make herself more emergent. She thought that drinking this solution will cause her to foam at the mouth and seize increasing her acuity and causing her to be seen more immediately in the ED. Currently patient denies any discomfort. She denies any sore throat or abdominal pain. Patient denies suicidal ideation. Patient was admitted and monitored overnight. No significant abnormalities was noted. GI was consulted with no intervention recommended except for Carafate with diet. The patient was seen by psychiatry admits to depression and anxiety and also injected of some type of amphetamine 2 days in the left prior to admission. Patient was diagnosed acute psychosis with suicidal behavior and ideation and was continued on 1013. Clinically she is medically stable for transfer to inpatient psych. Suboxone was continued in the hospital. * Acute psychosis and suicidal ideation and suicidal behavior * Ingestion of a corrosive substance which is base and potential to be converted into an acid substance * Peritoneal irritation with nausea vomiting nonspecific * Depression * Abdominal pain * Acute stress reaction * Opioid dependence Plan * Patient continues on 1013 * Patient believes she may be having the beginning of her period which is what is constant abdominal pain was not her on when necessary Tylenol 3. * continues on Suboxone psychiatry input noted. Awaiting bed at facility. * No withdrawal symptoms are noted today. * Patient was seen by GI as noted on Carafate with diet. * DVT and GI prophylaxis * Plan of care discussed with the patient in detail History Interval history: Patient seen and examined in no acute distress at this time. was anticipated discharge yesterday but still not bad at the facility Hospitalist Physical - Physical exam Narrative exam: VITAL SIGNS: Reviewed. GENERAL: The patient appeared well nourished and normally developed. Vital signs as documented. HEAD: No signs of head trauma. EYES: Pupils are equal. Extraocular motions intact. EARS: Hearing grossly intact. MOUTH: Oropharynx is normal. NECK: No adenopathy, no JVD. CHEST: Chest with clear breath sounds bilaterally. No wheezes, rales, or rhonchi. CARDIAC: Regular rate and rhythm. S1 and S2, without murmurs, gallops, or rubs. VASCULAR: No Edema. Peripheral pulses normal and equal in all extremities. ABDOMEN: Soft, without detectable tenderness. No sign of distention. No rebound or guarding, and no masses palpated. Bowel Sounds normal. MUSCULOSKELETAL: Good range of motion of all major joints. Extremities without clubbing, cyanosis or edema. NEUROLOGIC EXAM: Alert and oriented x 3. No focal sensory or strength deficits. Speech normal. Follows commands. PSYCHIATRIC: Mood normal. SKIN: No rash or lesions. - Constitutional Vitals: Temp Pulse Resp BP Pulse Ox 98.3 F 91 H 18 139/93 100 03/10/17 08:34 03/10/17 08:34 03/10/17 08:34 03/10/17 08:34 03/10/17 08:34 Results - Labs CBC & Chem 7: 03/09/17 05:49 03/09/17 05:49 Labs: Laboratory Last Values WBC 6.2 K/mm3 (4.5-11.0) 03/09/17 05:49 RBC 4.15 M/mm3 (3.65-5.03) 03/09/17 05:49 Hgb 11.6 gm/dl (10.1-14.3) 03/09/17 05:49 Hct 36.1 % (30.3-42.9) 03/09/17 05:49 MCV 87 fl (79-97) 03/09/17 05:49 MCH 28 pg (28-32) 03/09/17 05:49 MCHC 32 % (30-34) 03/09/17 05:49 RDW 14.3 % (13.2-15.2) 03/09/17 05:49 Plt Count 336 K/mm3 (140-440) 03/09/17 05:49 Lymph % (Auto) 40.7 % (13.4-35.0) H 03/09/17 05:49 [place]ack[place]ord % (Auto) 8.5 % (0.0-7.3) H 03/09/17 05:49 Eos % (Auto) 2.9 % (0.0-4.3) 03/09/17 05:49 Baso % (Auto) 1.1 % (0.0-1.8) 03/09/17 05:49 Lymph # 2.5 K/mm3 (1.2-5.4) 03/09/17 05:49 [place]ord # 0.5 K/mm3 (0.0-0.8) 03/09/17 05:49 Eos # 0.2 K/mm3 (0.0-0.4) 03/09/17 05:49 Baso # 0.1 K/mm3 (0.0-0.1) 03/09/17 05:49 Seg Neutrophils % 46.8 % (40.0-70.0) 03/09/17 05:49 Seg Neutrophils # 2.9 K/mm3 (1.8-7.7) 03/09/17 05:49 Sodium 141 mmol/L (137-145) 03/09/17 05:49 Potassium 4.1 mmol/L (3.6-5.0) 03/09/17 05:49 Chloride 99.4 mmol/L (98-107) 03/09/17 05:49 Carbon Dioxide 26 mmol/L (22-30) 03/09/17 05:49 Anion Gap 20 mmol/L 03/09/17 05:49 BUN 7 mg/dL (7-17) 03/09/17 05:49 Creatinine 0.6 mg/dL (0.7-1.2) L 03/09/17 05:49 Estimated GFR > 60 ml/min 03/09/17 05:49 BUN/Creatinine Ratio 11.66 % 03/09/17 05:49 Glucose 110 mg/dL (65-100) H 03/09/17 05:49 Calcium 9.2 mg/dL (8.4-10.2) 03/09/17 05:49 Total Bilirubin 0.20 mg/dL (0.1-1.2) 03/09/17 05:49 AST 23 units/L (5-40) 03/09/17 05:49 ALT 15 units/L (7-56) 03/09/17 05:49 Alkaline Phosphatase 72 units/L (35-129) 03/09/17 05:49 Total Protein 7.9 g/dL (6.3-8.2) 03/09/17 05:49 Albumin 4.1 g/dL (3.9-5) 03/09/17 05:49 Albumin/Globulin Ratio 1.1 % 03/09/17 05:49 Lipase 18 units/L (13-60) 03/07/17 18:50 Urine Color Yellow (Yellow) 03/07/17 21:09 Urine Turbidity Clear (Clear) 03/07/17 21:09 Urine pH 5.0 (5.0-7.0) 03/07/17 21:09 Ur Specific Richards 1.017 (1.003-1.030) 03/07/17 21:09 Urine Protein <15 mg/dl mg/dL (Negative) 03/07/17 21:09 Urine Glucose (UA) Neg mg/dL (Negative) 03/07/17 21:09 Urine Ketones Neg mg/dL (Negative) 03/07/17 21:09 Urine Blood Neg (Negative) 03/07/17 21:09 Urine Nitrite Neg (Negative) 03/07/17 21:09 Urine Bilirubin Neg (Negative) 03/07/17 21:09 Urine Urobilinogen < 2.0 mg/dL (<2.0) 03/07/17 21:09 Ur Leukocyte Esterase Mod (Negative) 03/07/17 21:09 Urine WBC (Auto) 7.0 /HPF (0.0-6.0) H 03/07/17 21:09 Urine RBC (Auto) 5.0 /HPF (0.0-6.0) 03/07/17 21:09 U Epithel Cells (Auto) 12.0 /HPF (0-13.0) 03/07/17 21:09 Urine Bacteria (Auto) 1+ /HPF (Negative) 03/07/17 21:09 Urine Mucus Few /HPF 03/07/17 21:09
[2017-03-10] MEDS: AMBIEN PO PRN (21:53)
[2017-03-11] MEDS: TYLENOL PO PRN ×3 (01:06→10:44)
[2017-03-11] MEDS: CARAFATE PO SCH ×2 (08:22→13:20)
[2017-03-11 08:48] VITALS: BP 107/69
[2017-03-11] MEDS: PEPCID PO SCH (10:44)
[2017-03-11] MEDS: LOVENOX SUB-Q SCH (10:44)
[2017-03-11] MEDS: LEVAQUIN PO SCH (13:20)
== END 2017-03-11 15:00 ==
LOC: ED 17:56 → 3A 03-08 06:06
PROVIDERS: ADMIT Internal Medicine Geriatric Medicine; ATTEND Internal Medicine
DX: T54.92XA Toxic effect of unspecified corrosive substance, intentional self-harm, initial encounter (principal); F23 Brief psychotic disorder; F32.9 Major depressive disorder, single episode, unspecified; F11.20 Opioid dependence, uncomplicated; F29 Unspecified psychosis not due to a substance or known physiological condition; R11.2 Nausea with vomiting, unspecified; K21.9 Gastro-esophageal reflux disease without esophagitis; N30.00 Acute cystitis without hematuria; F43.0 Acute stress reaction; Y92.89 Other specified places as the place of occurrence of the external cause
CPT/HCPCS: 36415; 80053; 81001; 83690; 85025; 87086; 96361; 96372; 96374; 96375; 99285; G0378; J1650; J3486; J7042